=== PATIENT | male | born 1975 | race Two or more races ===

== ENCOUNTER 2020-02-24 23:16 | Emergency (ER) | payer MEDICAID ==
[~2020-02-24] VITALS: Ht 170.2 cm; Wt 72.4 kg
[2020-02-24 23:18] VITALS: BP 131/85
--- NOTE | 2020-02-24 23:45 | NUR ---
pt resting comfortably in [facility] at this time with dr harris at bs for pt history and assessment;
[2020-02-24] MEDS ORDERED: DEXAMETHASONE 4 MG TABLET ONE (23:48)
[2020-02-24] MEDS ORDERED: DIPHENHYDRAMINE 50 MG CAPSULE ONE (23:48)
--- NOTE | 2020-02-24 23:51 | NUR ---
pt medicated per mar.
[2020-02-25] MEDS ORDERED: DEXAMETHASONE 4 MG TABLET PO ONE
[2020-02-25] MEDS ORDERED: DIPHENHYDRAMINE 25 MG CAPSULE PO ONE
--- NOTE | 2020-02-25 00:30 | NUR ---
pt d/c with d/c summary. all questions answered. pt and spouse deny any other needs pertaining to this visit. pt ambulates to registration desk with steady gait for d/c home.
== END 2020-02-25 00:33 | disposition home or self-care (01) ==
LOC: ED 23:30
DX: L50.0 Allergic urticaria (principal)
CPT/HCPCS: 99283; Q0163